=== PATIENT | female | born 1950 | race Caucasian/White ===

== ENCOUNTER 2020-12-04 09:51 | Day surgery (SDC) | payer OTHER, BC ==
[2020-11-27 15:06] VITALS: BMI 27.6
[2020-12-04] MEDS ORDERED: MIDAZOLAM HCL 2 MG/2 ML SINGLE DOSE VIAL ONE (11:35)
[2020-12-04] MEDS ORDERED: PROPOFOL 20 ML ONE (11:35)
[2020-12-04] MEDS ORDERED: BUPIVACAINE HCL/PF 0.25% (2.5MG/ML) 10 ML VIAL ONE (11:55)
[2020-12-04] MEDS ORDERED: LIDOCAINE HCL 2% (50ML VIAL) INF ONE (12:29)
[2020-12-04 13:41] VITALS: TEMP 97.9
[2020-12-04 13:44] VITALS: BP 93/62; PULSE 66
[2020-12-04] MEDS ORDERED: ACETAMINOPHEN 325 MG TABLET (FP) PO PRN (15:42)
[2020-12-04] MEDS ORDERED: ONDANSETRON 4 MG/2 ML VIAL IVPUSH PRN (15:42)
[2020-12-04] MEDS ORDERED: LACTATED RINGERS SOLUTION 1,000 ML IV SCH (15:45)
== END 2020-12-04 13:40 | disposition home or self-care (01) ==
LOC: FASU 09:51
PROVIDERS: ATTEND Orthopaedic Surgery Hand Surgery
PROC: 0LN50ZZ Release Right Lower Arm and Wrist Tendon, Open Approach (ICD-10-PCS; principal; 2020-12-04 12:29)
DX: M65.4 Radial styloid tenosynovitis [de Quervain] (principal)
CPT/HCPCS: 82962